=== PATIENT | male | born 1995 | race Caucasian/White ===

== ENCOUNTER 2021-12-02 16:37 | Inpatient (IN) | payer OTHER ==
[2021-12-02] MEDS ORDERED: IBUPROFEN 600 MG TABLET (FP) PO PRN (17:42)
[2021-12-02] MEDS ORDERED: IBUPROFEN 400 MG TABLET (FP) PO PRN (17:42)
[2021-12-02] MEDS ORDERED: METHOCARBAMOL 500 MG TABLET PO PRN (17:42)
[2021-12-02] MEDS ORDERED: MAGNESIUM HYDROX 2400MG/30ML ORAL SUSPENSION 30 ML CUP PO PRN (17:42)
[2021-12-02] MEDS ORDERED: MAGNESIUM CITRATE 300 ML BOTTLE PO PRN (17:42)
[2021-12-02] MEDS ORDERED: LOPERAMIDE HCL 2 MG CAPSULE PO PRN (17:42)
[2021-12-02] MEDS ORDERED: MELATONIN 5 MG TABLETS PO PRN (17:42)
[2021-12-02] MEDS ORDERED: ACETAMINOPHEN 325 MG TABLET (FP) PO PRN ×2 (17:42)
[2021-12-02] MEDS ORDERED: BENZOCAINE/MENTHOL (CHLORASEPTIC ) LOZENGE MM PRN (17:42)
[2021-12-02] MEDS ORDERED: MAG HYDROX/AL HYDROX/SIMETH 30 ML UNIT-DOSE CUP PO PRN (17:42)
[2021-12-02] MEDS ORDERED: BISMUTH SUBSALICYLATE 524 MG/30 ML PO PRN (17:42)
[2021-12-02] MEDS ORDERED: ONDANSETRON *ODT* 4 MG TABLET SL PRN (17:42)
[2021-12-02] MEDS ORDERED: DICYCLOMINE HCL 10 MG CAPSULE PO PRN (17:42)
[2021-12-02] MEDS ORDERED: hydrOXYzine PAMOATE 25 MG CAPSULE (FP) PO PRN (17:42)
[2021-12-02 17:48] VITALS: BMI 22.1
[2021-12-02] MEDS ORDERED: diazePAM 5 MG TABLET PO PRN (17:50)
[2021-12-02] MEDS: NICOTINE 10 MG CARTRIDGE (INHALER) IH PRN (21:58)
[2021-12-02] MEDS ORDERED: THIAMINE HCL 100 MG TABLET (FP) PO SCH (22:00)
[2021-12-02] MEDS: diazePAM 5 MG TABLET PO SCH (22:00)
[2021-12-03] MEDS: diazePAM 5 MG TABLET PO SCH ×2 (05:32→11:07)
[2021-12-03] MEDS: NICOTINE 10 MG CARTRIDGE (INHALER) IH PRN (09:03)
[2021-12-03 09:25] VITALS: BP 126/62; PULSE 84; TEMP 97.3
[2021-12-03 09:53] LABS: HEMATOCRIT 41.7 % (35.4-49); HEMOGLOBIN 14.5 GM/dL (11.7-16.9); MCH 28.9 pg (25.7-33.7); MCHC 34.7 g/dl (32.0-35.9); MEAN CELL VOLUME 83.2 fl (80-96); MEAN PLT VOLUME 9.6 fl (7.5-11.1); PLATELET COUNT 155 10^3/uL (134-434); RBC 5.02 M/mm3 (4.00-5.60); RDW 13.4 % (11.9-15.9)
[2021-12-03 09:58] LABS: ALBUMIN 3.5 g/dl (3.4-5.0); BLOOD UREA NITROGEN 16.1 mg/dL (7-18)
[2021-12-03] MEDS ORDERED: risperiDONE 2 MG TABLET PO SCH (10:00)
[2021-12-03] MEDS ORDERED: PRENATAL VITAMINS W/ FOLIC ACID TABLET (FP) PO SCH (10:00)
[2021-12-03 10:02] LABS: CREATININE 0.7 mg/dL (0.55-1.3)
[2021-12-03 10:03] LABS: BILIRUBIN,TOTAL 0.7 mg/dL (0.2-1); TOT PROT 6.3 g/dl (6.4-8.2)
[2021-12-04] MEDS ORDERED: diazePAM 5 MG TABLET PO SCH (06:00)
[2021-12-05] MEDS ORDERED: diazePAM 5 MG TABLET PO SCH (06:00)
[2021-12-06] MEDS ORDERED: diazePAM 5 MG TABLET PO ONE (06:00)
== END 2021-12-03 10:40 | disposition left against medical advice (07) | DRG 770 ==
LOC: YASAS 16:37 → Y6N 20:40
PROVIDERS: ADMIT Allergy & Immunology; ATTEND Surgery
PROC: HZ2ZZZZ Detoxification Services for Substance Abuse Treatment (ICD-10-PCS; principal; 2021-12-02)
DX: F10.230 Alcohol dependence with withdrawal, uncomplicated (principal); F12.20 Cannabis dependence, uncomplicated; F17.213 Nicotine dependence, cigarettes, with withdrawal; F10.282 Alcohol dependence with alcohol-induced sleep disorder; F20.9 Schizophrenia, unspecified; G40.909 Epilepsy, unspecified, not intractable, without status epilepticus; Z59.01 Sheltered homelessness
CPT/HCPCS: 36415; 80053; 85027; 86780; C9803-CS; U0003; U0005

== ENCOUNTER 2021-12-18 16:38 | Inpatient (IN) | payer OTHER ==
[2021-12-18 17:46] VITALS: BMI 20.9
[2021-12-18] MEDS ORDERED: ACETAMINOPHEN 325 MG TABLET (FP) PO PRN (18:45)
[2021-12-18] MEDS ORDERED: MAGNESIUM HYDROX 2400MG/30ML ORAL SUSPENSION 30 ML CUP PO PRN (18:45)
[2021-12-18] MEDS ORDERED: IBUPROFEN 400 MG TABLET (FP) PO PRN (18:45)
[2021-12-18] MEDS ORDERED: MAG HYDROX/AL HYDROX/SIMETH 30 ML UNIT-DOSE CUP PO PRN (18:45)
[2021-12-18] MEDS ORDERED: LOPERAMIDE HCL 2 MG CAPSULE PO PRN (18:45)
[2021-12-18] MEDS ORDERED: P-EPHED 60MG/TRIPROLIDI 2.5MG TABLET PO PRN (18:45)
[2021-12-18] MEDS ORDERED: MAGNESIUM CITRATE 300 ML BOTTLE PO PRN (18:45)
[2021-12-18] MEDS ORDERED: guaiFENesin 200 MG/10 ML 10 ML UNIT-DOSE CUPS PO PRN (18:45)
[2021-12-18] MEDS: MELATONIN 5 MG TABLETS PO SCH (23:11)
[2021-12-18] MEDS: levETIRAcetam 500 MG TABLET (FP) PO SCH (23:11)
[2021-12-18] MEDS: THIAMINE HCL 100 MG TABLET (FP) PO SCH (23:11)
[2021-12-18] MEDS: hydrOXYzine PAMOATE 25 MG CAPSULE (FP) PO SCH (23:12)
[2021-12-19] MEDS: hydrOXYzine PAMOATE 25 MG CAPSULE (FP) PO SCH ×5 (06:18→21:27)
[2021-12-19] MEDS: PRENATAL VITAMINS W/ FOLIC ACID TABLET (FP) PO SCH (10:25)
[2021-12-19] MEDS: levETIRAcetam 500 MG TABLET (FP) PO SCH ×2 (10:25→21:28)
[2021-12-19 12:13] LABS: URINE APPEARANCE CLEAR; URINE BILIRUBIN NEGATIVE (NEGATIVE); URINE COLOR YELLOW; URINE GLUCOSE (UA) NEGATIVE (NEGATIVE); URINE KETONE NEGATIVE (NEGATIVE); URINE LEUK ESTERASE NEGATIVE (NEGATIVE); URINE NITRITE NEGATIVE (NEGATIVE); URINE PROTEIN NEGATIVE (NEGATIVE)
[2021-12-19 12:20] LABS: HEMATOCRIT 42.2 % (35.4-49); HEMOGLOBIN 14.5 GM/dL (11.7-16.9); MCH 28.8 pg (25.7-33.7); MCHC 34.5 g/dl (32.0-35.9); MEAN CELL VOLUME 83.5 fl (80-96); MEAN PLT VOLUME 10.5 fl (7.5-11.1); PLATELET COUNT 132 10^3/uL (134-434); RBC 5.05 M/mm3 (4.00-5.60); RDW 13.9 % (11.9-15.9); WHITE BLOOD COUNT 5.5 K/mm3 (4.0-10.0)
[2021-12-19 12:39] LABS: CALCIUM 8.8 mg/dL (8.5-10.1)
[2021-12-19 12:40] LABS: ALBUMIN 3.5 g/dl (3.4-5.0); BLOOD UREA NITROGEN 16.2 mg/dL (7-18)
[2021-12-19 12:43] LABS: CREATININE 0.8 mg/dL (0.55-1.3)
[2021-12-19 12:44] LABS: BILIRUBIN,TOTAL 0.4 mg/dL (0.2-1); TOT PROT 6.4 g/dl (6.4-8.2)
[2021-12-19 12:45] LABS: SYPHILIS W/ RPR CONF NON-REACTIVE (NONREACTIVE)
[2021-12-19] MEDS: NICOTINE POLACRILEX 2 MG GUM BC PRN ×2 (19:35→21:29)
[2021-12-19] MEDS: MELATONIN 5 MG TABLETS PO SCH (21:27)
[2021-12-19] MEDS: THIAMINE HCL 100 MG TABLET (FP) PO SCH (21:27)
[2021-12-19] MEDS: risperiDONE 2 MG TABLET PO SCH (21:28)
[2021-12-20] MEDS: hydrOXYzine PAMOATE 25 MG CAPSULE (FP) PO SCH ×5 (06:12→21:01)
[2021-12-20] MEDS: PRENATAL VITAMINS W/ FOLIC ACID TABLET (FP) PO SCH (09:52)
[2021-12-20] MEDS: levETIRAcetam 500 MG TABLET (FP) PO SCH ×2 (09:52→21:01)
[2021-12-20] MEDS: NICOTINE POLACRILEX 2 MG GUM BC PRN ×3 (12:28→21:02)
[2021-12-20] MEDS: risperiDONE 2 MG TABLET PO SCH (21:02)
[2021-12-20] MEDS: MELATONIN 5 MG TABLETS PO SCH (21:02)
[2021-12-20] MEDS: THIAMINE HCL 100 MG TABLET (FP) PO SCH (21:02)
[2021-12-21] MEDS: hydrOXYzine PAMOATE 25 MG CAPSULE (FP) PO SCH ×4 (06:24→18:26)
[2021-12-21 06:34] VITALS: BP 103/68; PULSE 67; TEMP 97.7
[2021-12-21] MEDS: levETIRAcetam 500 MG TABLET (FP) PO SCH (09:29)
[2021-12-21] MEDS: PRENATAL VITAMINS W/ FOLIC ACID TABLET (FP) PO SCH (09:30)
[2021-12-21] MEDS: NICOTINE POLACRILEX 2 MG GUM BC PRN ×2 (11:58→14:44)
== END 2021-12-21 20:00 | disposition left against medical advice (07) | DRG 770 ==
LOC: YASAS 16:38 → Y3E 22:35
PROVIDERS: ADMIT Allergy & Immunology; ATTEND Psychiatry & Neurology Pain Medicine
PROC: HZ42ZZZ Group Counseling for Substance Abuse Treatment, Cognitive-Behavioral (ICD-10-PCS; principal; 2021-12-18)
DX: F10.230 Alcohol dependence with withdrawal, uncomplicated (principal); F10.280 Alcohol dependence with alcohol-induced anxiety disorder; F14.20 Cocaine dependence, uncomplicated; F11.10 Opioid abuse, uncomplicated; F17.210 Nicotine dependence, cigarettes, uncomplicated; F31.9 Bipolar disorder, unspecified; F19.24 Other psychoactive substance dependence with psychoactive substance-induced mood disorder; F20.9 Schizophrenia, unspecified; G40.909 Epilepsy, unspecified, not intractable, without status epilepticus; Z56.0 Unemployment, unspecified; Z59.01 Sheltered homelessness
CPT/HCPCS: 36415; 80053; 81003; 85027; 86780; 86803; 87811; C9803-CS; U0003; U0005